=== PATIENT | female | born 1980 | race African-American/Black ===

== ENCOUNTER 2023-06-13 20:27 | Inpatient (IN) | payer SELFPAY ==
[~2023-06-13] VITALS: Ht 167.6 cm; Wt 95.3 kg
[2023-06-13] MEDS ORDERED: ONDANSETRON HCL 4MG/2ML INJ IV STA (21:47)
[2023-06-13] MEDS ORDERED: KETOROLAC 30MG/ML VIAL IV STA (21:47)
[2023-06-13] MEDS ORDERED: SODIUM CHLORIDE 0.9% 1,000 ML IV ONE (22:00)
[2023-06-14] MEDS ORDERED: SODIUM CHLORIDE 0.9% 1,000 ML IV ONE (01:00)
[2023-06-14 01:24] LABS: BASOPHILS % 0.2 % (0.0-2.0); EOSINOPHILS % 0.1 % (0.0-5.0); HEMATOCRIT. 27.6 % (36.0-48.0); HEMOGLOBIN. 8.8 g/dL (12.0-16.0); LYMPHOCYTES % 8.7 % (20.0-50.0); MEAN CORPUSCULAR HEMOGLOBIN 28.1 pg (28.0-32.0); MEAN CORPUSCULAR HGB CONC 32.1 g/dL (31.0-37.0); MEAN CORPUSCULAR VOLUME 87.6 fL (81.0-99.0); MEAN PLATELET VOLUME 9.5 fl (7.4-10.4); MONOCYTES % 3.3 % (2.0-8.0); NEUTROPHILS % 87.7 % (40.0-76.0); PLATELET 219 x1000/uL (130-400); RED BLOOD CELL COUNT 3.15 mill/uL (4.2-5.4); RED CELL DISTRIBUTION WIDTH 14.2 % (11.6-14.6)
[2023-06-14 01:37] LABS: ALANINE AMINOTRANSFERASE 12 IU/L (10-49); ALBUMIN 3.2 g/dL (3.2-4.8); ASPARTATE AMINOTRANSFERASE 10 IU/L (<34); BILIRUBIN TOTAL 0.4 mg/dL (0.1-1.0); CALCIUM 8.1 mg/dL (8.7-10.4); CARBON DIOXIDE 22 mEq/L (21-32); CHLORIDE 107 mEq/L (98-107); GLUCOSE 172 mg/dL (70-105); POTASSIUM 3.5 mEq/L (3.5-5.1); PROTEIN TOTAL 5.9 g/dL (6.0-8.3); SODIUM 141 mEq/L (136-145); UREA NITROGEN BLOOD 16 mg/dL (9-23)
[2023-06-14 01:41] LABS: HCG SCREEN POSITIVE
[2023-06-14 01:45] LABS: ETHANOL BLOOD < 10 mg/dL (<10)
[2023-06-14] MEDS ORDERED: MORPHINE SULFATE 4 MG/ML CPJ (NOT FOR IM USE) IV ONE (02:00)
[2023-06-14] MEDS ORDERED: FENTANYL CITRATE/PF 50MCG/ML 2ML VIAL IV ONE (02:30)
[2023-06-14 02:40] LABS: INR 1.1; PARTIAL THROMBOPLASTIN TIME 23.4 sec (23.4-31.0); PROTHROMBIN TIME 11.5 sec (9.6-11.0)
[2023-06-14] MEDS ORDERED: ALBUMIN HUMAN 12.5G/250ML (5%) IV ONE (03:42)
[2023-06-14] MEDS ORDERED: ETOMIDATE 2MG/ML 10ML VIAL IV ONE (03:43)
[2023-06-14] MEDS ORDERED: DEXAMETHASONE 4MG/ML 1ML VIAL ONE (03:51)
[2023-06-14] MEDS ORDERED: CEFAZOLIN SODIUM 1000MG/VIAL ONE (03:51)
[2023-06-14] MEDS ORDERED: ONDANSETRON HCL 4MG/2ML INJ ONE (03:51)
[2023-06-14] MEDS ORDERED: SUCCINYLCHOLINE CHLORIDE 200MG/10ML IV ONE (03:52)
[2023-06-14] MEDS ORDERED: ROCURONIUM BROMIDE 10MG/ML VIAL 5ML IV ONE (03:52)
[2023-06-14] MEDS ORDERED: LIDOCAINE HCL 1% 20ML VIAL (Pyxis) INJ ONE (03:52)
[2023-06-14] MEDS ORDERED: FENTANYL CITRATE/PF 50MCG/ML 2ML VIAL ONE (04:40)
[2023-06-14] MEDS ORDERED: HYDROMORPHONE HCL/PF 2MG/ML CPJ IV PRN ×2 (05:00→05:45)
[2023-06-14] MEDS ORDERED: ONDANSETRON HCL 4MG/2ML INJ IV PRN ×2 (05:00→05:45)
[2023-06-14] MEDS ORDERED: GLYCOPYRROLATE 0.2 MG/ML 2ML VIAL ONE (05:04)
[2023-06-14] MEDS ORDERED: NALOXONE HCL 0.4MG/ML VIAL IV PRN (05:30)
[2023-06-14] MEDS ORDERED: MEPERIDINE HCL/PF 25MG/ML CPJ IV PRN (05:45)
[2023-06-14] MEDS: FENTANYL CITRATE/PF 50MCG/ML 2ML VIAL IV PRN ×2 (06:28→06:53)
[2023-06-14 06:47] LABS: HEMATOCRIT. 29.3 % (36.0-48.0); HEMOGLOBIN. 9.1 g/dL (12.0-16.0); MEAN CORPUSCULAR HEMOGLOBIN 27.7 pg (28.0-32.0); MEAN CORPUSCULAR VOLUME 89.5 fL (81.0-99.0); MEAN PLATELET VOLUME 9.5 fl (7.4-10.4); PLATELET 185 x1000/uL (130-400); RED BLOOD CELL COUNT 3.27 mill/uL (4.2-5.4); WHITE BLOOD COUNT 13.1 x1000/uL (4.5-11.0)
[2023-06-14 06:49] LABS: DIFFERENTIAL COMMENT 1
[2023-06-14 07:59] VITALS: BP 106/67; PULSE 72; RESP 20; TEMP 98
[2023-06-14 08:09] VITALS: BP 116/77; PULSE 98; RESP 20; TEMP 98
[2023-06-14 08:26] VITALS: BP 116/77; PULSE 98; RESP 20; TEMP 98
[2023-06-14 12:00] VITALS: BP 113/69; PULSE 76; RESP 18; TEMP 97.9
[2023-06-14] MEDS: IBUPROFEN 600MG TABLET PO PRN (13:17)
[2023-06-14 16:02] VITALS: BP 106/60; PULSE 62; RESP 20; TEMP 97.9
[2023-06-14 20:00] VITALS: BP 95/47; PULSE 83; RESP 18; TEMP 98.4
[2023-06-14 20:27] LABS: PLATELET ESTIMATE NORMAL
[2023-06-15] VITALS: BP 92/50; PULSE 74; RESP 18; TEMP 98.4
[2023-06-15 04:00] VITALS: BP 116/75; PULSE 80; RESP 18; TEMP 98.2
[2023-06-15 06:39] LABS: BASOPHILS % 0.2 % (0.0-2.0); EOSINOPHILS % 0.5 % (0.0-5.0); HEMATOCRIT. 25.8 % (36.0-48.0); HEMOGLOBIN. 8.6 g/dL (12.0-16.0); LYMPHOCYTES % 26.2 % (20.0-50.0); MEAN CORPUSCULAR HEMOGLOBIN 28.6 pg (28.0-32.0); MEAN CORPUSCULAR HGB CONC 33.3 g/dL (31.0-37.0); MEAN CORPUSCULAR VOLUME 85.9 fL (81.0-99.0); MEAN PLATELET VOLUME 9.1 fl (7.4-10.4); MONOCYTES % 6.3 % (2.0-8.0); NEUTROPHILS % 66.8 % (40.0-76.0); PLATELET 180 x1000/uL (130-400); RED CELL DISTRIBUTION WIDTH 14.4 % (11.6-14.6); WHITE BLOOD COUNT 7.7 x1000/uL (4.5-11.0)
[2023-06-15 08:00] VITALS: BP 99/57; PULSE 80; RESP 18; TEMP 97.7
[2023-06-15] MEDS: IBUPROFEN 600MG TABLET PO PRN (08:38)
[2023-06-15 12:00] VITALS: BP 123/66; PULSE 76; RESP 16; TEMP 98.2
[2023-06-15 16:00] VITALS: BP 117/72; PULSE 79; RESP 20; TEMP 97
[2023-06-15] MEDS: MULTIVITAMINS,THER W-MINERALS TABLET PO SCH (17:32)
[2023-06-15] MEDS: FERROUS SULFATE 325MG TABLET PO SCH (17:32)
[2023-06-15 20:29] VITALS: BP 116/71; PULSE 46; RESP 19; TEMP 97.8
[2023-06-16] VITALS: BP 122/74; PULSE 62; RESP 19; TEMP 98
[2023-06-16 04:00] VITALS: BP 98/41; PULSE 64; RESP 19; TEMP 98.4
[2023-06-16 07:48] VITALS: BP 111/77; PULSE 73; RESP 18; TEMP 98.5
[2023-06-16] MEDS: MULTIVITAMINS,THER W-MINERALS TABLET PO SCH (08:10)
[2023-06-16] MEDS: FERROUS SULFATE 325MG TABLET PO SCH ×3 (08:10→18:12)
[2023-06-16 11:47] VITALS: BP_SYST 124; BP_SYST 150; BP_DIAS 65; BP_DIAS 75; PULSE 103; PULSE 78; RESP 18; TEMP 97.8; TEMP 98.5
[2023-06-16 15:49] VITALS: BP 99/65; PULSE 77; RESP 18; TEMP 98.9
[2023-06-16] MEDS ORDERED: HYDROMORPHONE HCL/PF 2MG/ML CPJ IV PRN (16:30)
[2023-06-16 20:00] VITALS: BP 120/60; PULSE 66; RESP 20; TEMP 98.2
[2023-06-17] VITALS: BP 113/73; PULSE 44; RESP 18; TEMP 99.6
[2023-06-17 04:00] VITALS: BP 113/74; PULSE 63; RESP 20; TEMP 99.1
[2023-06-17 08:13] VITALS: BP 142/61; PULSE 55; RESP 18; TEMP 98.6
[2023-06-17] MEDS: MULTIVITAMINS,THER W-MINERALS TABLET PO SCH (08:18)
[2023-06-17] MEDS: FERROUS SULFATE 325MG TABLET PO SCH ×2 (08:18→13:05)
[2023-06-17 12:11] VITALS: BP 128/82; PULSE 68; RESP 20; TEMP 97.7
[2023-06-17 12:38] VITALS: BP 128/82; PULSE 68; TEMP 97.7; O2SAT 97
== END 2023-06-17 14:55 | disposition home or self-care (01) | DRG 547 ==
LOC: ER 20:27 → 7WST 06-14 02:18 → EDBEDREQ 06-14 02:27 → EDBEDREQSVC 06-14 02:27 → EDBEDREQTM 06-14 02:27
PROVIDERS: ADMIT Obstetrics & Gynecology; ATTEND Obstetrics & Gynecology
PROC: 0UB50ZZ Excision of Right Fallopian Tube, Open Approach (ICD-10-PCS; principal; 2023-06-14)
PROC: 30233N1 Transfusion of Nonautologous Red Blood Cells into Peripheral Vein, Percutaneous Approach (ICD-10-PCS; 2023-06-14)
PROC: 0U950ZZ Drainage of Right Fallopian Tube, Open Approach (ICD-10-PCS; 2023-06-14)
DX: O00.90 Unspecified ectopic pregnancy without intrauterine pregnancy (principal); K66.1 Hemoperitoneum; K80.20 Calculus of gallbladder without cholecystitis without obstruction; D25.9 Leiomyoma of uterus, unspecified; D64.9 Anemia, unspecified; E66.9 Obesity, unspecified; Z85.3 Personal history of malignant neoplasm of breast; Z80.3 Family history of malignant neoplasm of breast; Z82.49 Family history of ischemic heart disease and other diseases of the circulatory system; Z83.3 Family history of diabetes mellitus
CPT/HCPCS: 36415; 76705; 76830; 76856; 80053; 80320; 83735; 84702; 84703; 85025; 86850; 86900; 86920; 88302; 88304; 93005; 99291; J0330; J0690; J1100; J1170; J1885; J2270; J2405; J3010; J3490; J7030; P9016; P9041; G0480